=== PATIENT | female | born 1995 | race Caucasian/White ===

== ENCOUNTER 2020-02-24 12:28 | Observation (INO) | payer SELFPAY ==
[~2020-02-24] VITALS: Ht 154.9 cm; Wt 73.5 kg
[2020-02-24] MEDS ORDERED: LACTATED RINGERS 1,000 ML IV SCH ×2 (14:55→16:00)
[2020-02-24 15:52] LABS: BASOPHILS % (AUTO) 0.3 % (0.0-2.0); EOSINOPHILS # (AUTO) 0.1 K/uL (0-0.4); EOSINOPHILS % (AUTO) 1.4 % (0.0-4.0); HEMATOCRIT 29.3 % (36-48); HEMOGLOBIN 9.4 g/dL (12.0-16.0); LYMPHOCYTES # (AUTO) 1.4 K/uL (2.5-16.5); LYMPHOCYTES % (AUTO) 22.9 % (20.5-51.1); MEAN CORPUSCULAR HEMOGLOBIN 26 pg (27-31); MEAN CORPUSCULAR HGB CONC 32 g/dL (33-37); MEAN CORPUSCULAR VOLUME 80.5 fL (80-94); MONOCYTES # (AUTO) 0.2 K/uL (0.8-1.0); MONOCYTES % (AUTO) 2.9 % (1.7-9.3); NEUTROPHILS # (AUTO) 4.3 K/uL (1.8-7.7); NEUTROPHILS % (AUTO) 72.5 % (42.2-75.2); PLATELET COUNT (AUTO) 167 K/uL (140-450); RED BLOOD CELL COUNT(AUTO) 3.64 MIL/uL (4.20-5.40); RED CELL DISTRIBUTION WIDTH 15.6 % (11.6-13.7)
[2020-02-24 15:58] LABS: APPEARANCE,URINE CLEAR (CLEAR); BILIRUBIN,URINE NEGATIVE (NEGATIVE); BLOOD, URINE NEGATIVE (NEGATIVE); COLOR,URINE YELLOW (YELLOW); LEUKOCYTE ESTERASE ,URINE 3+ (NEGATIVE); NITRITE, URINE NEGATIVE (NEGATIVE); PH,URINE 7.5 (5.0-9.0); UGLUCOSE NEGATIVE (NEGATIVE)
[2020-02-24 16:07] LABS: ALBUMIN 2.9 g/dL (3.4-5.0); ANION GAP 12.3 (8-16); CARBON DIOXIDE 25.3 mmol/L (21-32); CREATININE 0.4 mg/dL (0.6-1.3); POTASSIUM 3.6 mmol/L (3.5-5.1); TOTAL BILIRUBIN 0.3 mg/dL (0.0-1.0)
[2020-02-24 16:08] LABS: RBC,URINE 0-5 /HPF (0-5)
[2020-02-24 16:09] LABS: WBC,URINE 16-25 (MOD) /HPF (0-5)
[2020-02-24 16:21] VITALS: BP 103/59
== END 2020-02-24 18:50 | disposition home or self-care (01) ==
LOC: MLD 12:28
PROVIDERS: ADMIT Obstetrics & Gynecology; ATTEND Obstetrics & Gynecology
DX: O26.893 Other specified pregnancy related conditions, third trimester (principal); R10.2 Pelvic and perineal pain; Z87.59 Personal history of other complications of pregnancy, childbirth and the puerperium; Z3A.29 29 weeks gestation of pregnancy
CPT/HCPCS: 36415; 76817; 80053; 81001; 85025; 86886; 86900; 86901; 87086; 87210; G0378; J7120; Q0092

== ENCOUNTER 2022-05-12 19:49 | Emergency (ER) | payer BC, MEDICAID, OTHER ==
[~2022-05-12] VITALS: Ht 154.9 cm; Wt 74.8 kg
[2022-05-12 20:30] VITALS: BP 109/61
--- NOTE | 2022-05-12 20:35 | NUR ---
SWABS FOR DIEGO, INFLUENZA SENT TO LAB
--- NOTE | 2022-05-12 20:36 | NUR ---
TO LOBBY A/W BED AMBULATORY
[2022-05-12] MEDS ORDERED: ACETAMINOPHEN 325 MG TAB PO ONE (20:50)
[2022-05-12 22:04] VITALS: BP 109/61
--- NOTE | 2022-05-12 22:04 | NUR ---
Patient discharged with v/s stable. Written and verbal after care instructions given and explained. Patient verbalized understanding. Ambulatory with steady gait. All questions addressed prior to discharge. Advised to follow up with PMD.
== END 2022-05-12 22:03 | disposition home or self-care (01) ==
LOC: MED 19:49
DX: U07.1 COVID-19 (principal)
CPT/HCPCS: 99283